=== PATIENT | male | born 1995 | race Caucasian/White ===

== ENCOUNTER 2018-05-06 04:18 | Emergency (ER) | payer SELFPAY ==
[~2018-05-06] VITALS: Ht 185.4 cm; Wt 88.5 kg
--- NOTE | 2018-05-06 04:18 | NUR ---
PT BIB [facility], PREBOOK. TAKEN TO CHAIR E
[2018-05-06 04:19] VITALS: BP 147/77
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
--- NOTE | 2018-05-06 04:49 | NUR ---
Dr. Lui evaluating patient.
--- NOTE | 2018-05-06 05:17 | NUR ---
PATIENT BIB [facility]. PATIENT EXAMINED BY . PATIENT MEDICALLY CLEARED AND RELEASED IN CUSTODY IN STABLE CONDITION. ORIGINAL PRE-BOOK FORM GIVEN TO OFFICER ISRRAEL. Patient discharged with v/s stable. Written and verbal after care instructions given and explained. Patient verbalized understanding. Ambulatory with in custody. All questions addressed prior to discharge. Advised to follow up with PMD.
[2018-05-06 05:21] VITALS: BP 128/77
== END 2018-05-06 05:17 ==
LOC: MED 04:18
DX: Z02.89 Encounter for other administrative examinations (principal); V89.2XXA Person injured in unspecified motor-vehicle accident, traffic, initial encounter; Y93.89 Activity, other specified; Y92.89 Other specified places as the place of occurrence of the external cause; Y99.8 Other external cause status
CPT/HCPCS: 99283